=== PATIENT | female | born 1990 | race Caucasian/White ===

== ENCOUNTER 2016-12-12 19:25 | Emergency (ER) | payer BC, OTHER ==
[2016-12-12 19:31] VITALS: BP 125/82
[2016-12-12] MEDS ORDERED: cefTRIAXone VIAL(*) 1,000 MG VIAL IM ONE (20:25)
[2016-12-12] MEDS ORDERED: Lidocaine 1% MPF* 2 ML VIAL INJ ONE (20:30)
--- NOTE | 2016-12-12 20:41 | UC ---
Skin Complaint HPI - HPI Summary HPI Summary: 4 DAYS OF PAINFUL RED LEFT FOREARM. WENT TO [facility] YESTERDAY AND GIVEN A SHOT OF AN ANTIBIOTIC (PT CAN NOT RECALL WHAT) AND STARTED ON BACTRIM. TDAP BOOSTED. COMES IN TODAY BECAUSE REDNESS HAS DOUBLED IN SIZE. HAD LOW GRADE FEVER 100 YESTERDAY. PT DENIES IV DRUG USE. NOT SURE WHAT STARTED THE INFECTION. 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 - History of Current Complaint Chief Complaint: UCSkin Time Seen by Provider: 12/12/16 19:48 Stated Complaint: sore on arm Hx Obtained From: Patient Hx Last Menstrual Period: pt has pcos and menstrates every 2 months. Onset/Duration: Gradual Onset, Lasting Days, Still Present Timing: Constant Onset Severity: Moderate Current Severity: Moderate Pain Intensity: 7 Pain Scale Used: 0-10 Numeric Location: Discrete - LEFT FOREARM Character: Swelling, Pain, Redness Aggravating: Touch Alleviating: Nothing Associated Signs & Symptoms: Positive: Fever, Drainage, Tenderness - Allergy/Home Medications Allergies/Adverse Reactions: Allergies Allergy/AdvReac Type Severity Reaction Status Date / Time No Known Allergies Allergy Verified 09/09/15 10:36 Home Medications: Home Medications Sulfamethox/Trimethoprim DS* [Bactrim DS 800/160 TAB*] 1 tab PO BID 12/12/16 [ History Confirmed 12/12/16] Review of Systems Constitutional: Fever Skin: Other - ERYTHEMA Respiratory: Negative Cardiovascular: Negative Gastrointestinal: Negative All Other Systems Reviewed And Are Negative: Yes PMH/Surg Hx/FS Hx/Imm Hx Previously Healthy: Yes - Surgical History Surgical History: Yes Surgery Procedure, Year, and Place: [facility] E[facility] TUBES A [facility]AB[facility]. WISDOM TEETH - Family History Known Family History: Positive: Hypertension, Other - NONCONTRIBUTORY - Social History Alcohol Use: Occasionally Alcohol Amount: 2 DRINKS A WEEK Substance Use Type: None Smoking Status (MU): Never Smoked Tobacco Physical Exam Triage Information Reviewed: Yes Appearance: Well-Appearing, No Pain Distress, Well-Nourished Vital Signs: Initial Vital Signs Temp 98.6 F 12/12/16 19:26 Pulse 85 12/12/16 19:26 Resp 18 12/12/16 19:26 BP 125/82 12/12/16 19:26 Pulse Ox 99 12/12/16 19:26 Vital Signs Reviewed: Yes Eyes: Positive: Conjunctiva Clear ENT: Positive: Hearing grossly normal Neck: Positive: Supple Respiratory: Positive: No respiratory distress, No accessory muscle use Cardiovascular: Positive: Pulses Normal Abdomen Description: Positive: Soft Musculoskeletal: Positive: ROM Intact Neurological: Positive: Alert Psychological: Positive: Age Appropriate Behavior Skin: Positive: Other - LEFT FOREARM WITH SWELLING AND ERYTHEMA 11CM X 17CM. TENDER AND INDURATED. NO FLUCTUANCE. 5MM CENTRAL OPENING WITH CRUST. Course/Dx - Diagnoses Provider Diagnoses: CELLULITIS/ABSCESS LEFT FOREARM Discharge - Discharge Plan Condition: Stable Disposition: HOME Prescriptions: Cephalexin CAP* [Keflex 500 CAP*] 1,000 mg PO BID #40 cap Sulfamethox/Trimethoprim DS* [Bactrim DS 800/160 TAB*] 1 tab PO BID #6 tab Patient Education Materials: Cellulitis (ED), Abscess (ED) Forms: *Work Release Referrals: Latonia Julien MD [Primary Care Provider] - If Needed Additional Instructions: YOU RECEIVED 1G ROCEPHIN TODAY. WARM/HOT COMPRESSES/SOAKS AT LEAST 4 TIMES DAILY DOUBLE UP YOUR DOSE OF BACTRIM TO TAKE 2 TABS TWICE DAILY FOR 6 DOSES, THEN RESUME 1 TAB TWICE DAILY FOR THE REMAINDER OF THE COURSE. START CEPHALEXIN TWICE DAILY IF YOU DO NOT NOTICE CLEAR IMPROVEMENT BY WEDNESDAY. GO TO THE ER IF YOU DEVELOP FURTHER SPREADING REDNESS OF THE SKIN, FEVER, INCREASED PAIN OR ANY OTHER CONCERNING SYMPTOMS DESPITE THE ABOVE TREATMENT.
== END 2016-12-12 21:00 | disposition home or self-care (01) ==
LOC: UCEAST 19:25
DX: L02.414 Cutaneous abscess of left upper limb (principal); L03.114 Cellulitis of left upper limb
CPT/HCPCS: 96372; 99212; G0463; J0696